=== PATIENT | female | born 1965 | race Caucasian/White ===

== ENCOUNTER 2021-06-18 17:26 | Emergency (ER) | payer OTHER | END 2021-06-18 20:15 | disposition home or self-care (01) | LOC: MW.ED 17:26 | DX: S00.12XA Contusion of left eyelid and periocular area, initial encounter (principal); Z88.8 Allergy status to other drugs, medicaments and biological substances; V89.2XXA Person injured in unspecified motor-vehicle accident, traffic, initial encounter | CPT/HCPCS: 70486; 70486-26; 99283; 99283-25 ==

== ENCOUNTER 2021-11-18 13:46 | Emergency (ER) | payer SELFPAY | END 2021-11-18 14:12 | disposition left against medical advice (07) | LOC: MW.ED 13:46 | DX: Z53.21 Procedure and treatment not carried out due to patient leaving prior to being seen by health care provider (principal) ==

== ENCOUNTER 2022-07-20 15:23 | Emergency (ER) | payer OTHER ==
[2022-07-20] MEDS ORDERED: Ketorolac 60 MG/2 ML SDV IM ONE (16:06)
== END 2022-07-20 16:35 | disposition home or self-care (01) ==
LOC: MW.ED 15:23
DX: M25.511 Pain in right shoulder (principal); G89.29 Other chronic pain; Z79.899 Other long term (current) drug therapy; Z88.5 Allergy status to narcotic agent; Z88.8 Allergy status to other drugs, medicaments and biological substances
CPT/HCPCS: 73030; 96372; 99283; J1885

== ENCOUNTER 2022-09-13 06:32 | Emergency (ER) | payer SELFPAY ==
[2022-09-13] MEDS ORDERED: methylPREDNISolone Sodium Succinate 125 MG/2 ML SDV IVPUSH ONE (06:46)
[2022-09-13] MEDS ORDERED: Albuterol/Ipratropium 3.0-0.5 MG/3 ML Neb Soln NEB ONE (06:46)
[2022-09-13 06:51] LABS: BASOPHILS ABSOLUTE AUTO 0.1 K/uL (0.0-0.1); EOSINOPHILS ABSOLUTE AUTO 0.3 K/uL (0.0-0.7); EOSINOPHILS PERCENT AUTO 4.8 % (0.0-7.0); HEMATOCRIT 43.4 % (36.0-46.0); HEMOGLOBIN 15.2 g/dL (12.0-16.0); LYMPHOCYTES ABSOLUTE AUTO 2.1 K/uL (0.6-2.4); LYMPHOCYTES PERCENT AUTO 40.8 % (16.0-40.0); MEAN CORPUSCULAR HEMOGLOBIN 32.4 pg (27.0-32.0); MEAN CORPUSCULAR VOLUME 92.5 fL (80.0-98.0); MONOCYTES ABSOLUTE AUTO 0.6 K/uL (0.0-0.8); MONOCYTES PERCENT AUTO 11.5 % (0.0-15.0); NEUTROPHILS ABSOLUTE AUTO 2.2 K/uL (1.4-5.7); NEUTROPHILS PERCENT AUTO 41.9 % (48.0-80.0); NRBC ABSOLUTE 0 K/uL; PLATELET COUNT,PLT 213 K/uL (150-400); RED BLOOD CELL COUNT 4.69 M/uL (4.30-5.90); WHITE BLOOD CELL COUNT,WBC 5.24 K/uL (4.0-11.0)
[2022-09-13 07:15] LABS: ALBUMIN 3.6 g/dL (3.4-5.0); BILIRUBIN TOTAL 0.3 mg/dL (0.2-1.0); CALCIUM 8.2 mg/dL (8.5-10.1); CARBON DIOXIDE,CO2 21.3 mmol/L (21.0-32.0); CREATININE 0.8 mg/dL (0.6-1.0); EST CRCL DRUG DOSING (CG) 57.07 mL/min; PROTEIN TOTAL,TP 7.3 g/dL (6.4-8.2)
[2022-09-13] MEDS ORDERED: Albuterol 8 GM Inhaler INH ONE (08:37)
== END 2022-09-13 08:51 | disposition home or self-care (01) ==
LOC: MW.ED 06:32
DX: J45.909 Unspecified asthma, uncomplicated (principal); Z88.6 Allergy status to analgesic agent; Z88.8 Allergy status to other drugs, medicaments and biological substances; Z88.5 Allergy status to narcotic agent; Z20.822 Contact with and (suspected) exposure to COVID-19
CPT/HCPCS: 36415; 71045; 80053; 84484; 85025; 87635; 93005; 96374; 99285; A9270; J2930; J7620-GY; U0002

== ENCOUNTER 2022-09-14 12:47 | Observation (INO) | payer SELFPAY ==
[2022-09-14] MEDS ORDERED: Ketorolac 30 MG/ML SDV IVPUSH ONE (15:21)
[2022-09-14] MEDS ORDERED: Lactated Ringers 1,000 ML IV ONE (15:21)
[2022-09-14] MEDS ORDERED: Albuterol/Ipratropium 3.0-0.5 MG/3 ML Neb Soln NEB ONE (15:21)
[2022-09-14 16:12] LABS: BASOPHILS PERCENT AUTO 0.4 % (0.0-1.5); EOSINOPHILS ABSOLUTE AUTO 0.1 K/uL (0.0-0.7); EOSINOPHILS PERCENT AUTO 1.1 % (0.0-7.0); HEMATOCRIT 42.9 % (36.0-46.0); LYMPHOCYTES ABSOLUTE AUTO 4.1 K/uL (0.6-2.4); LYMPHOCYTES PERCENT AUTO 38.2 % (16.0-40.0); MEAN CORPUSCULAR HEMOGLOBIN 32.2 pg (27.0-32.0); MEAN CORPUSCULAR VOLUME 92.1 fL (80.0-98.0); MONOCYTES ABSOLUTE AUTO 0.7 K/uL (0.0-0.8); MONOCYTES PERCENT AUTO 6.5 % (0.0-15.0); NEUTROPHILS ABSOLUTE AUTO 5.8 K/uL (1.4-5.7); NEUTROPHILS PERCENT AUTO 53.8 % (48.0-80.0); NRBC ABSOLUTE 0 K/uL; PLATELET COUNT,PLT 228 K/uL (150-400); RED BLOOD CELL COUNT 4.66 M/uL (4.30-5.90); WHITE BLOOD CELL COUNT,WBC 10.81 K/uL (4.0-11.0)
[2022-09-14 16:34] LABS: A/G RATIO 0.9 (0.9-1.6); ALBUMIN 3.7 g/dL (3.4-5.0); BILIRUBIN TOTAL 0.3 mg/dL (0.2-1.0); CALCIUM 8.3 mg/dL (8.5-10.1); CARBON DIOXIDE,CO2 21.4 mmol/L (21.0-32.0); CREATININE 0.7 mg/dL (0.6-1.0); EST CRCL DRUG DOSING (CG) 65.23 mL/min; POTASSIUM,K 3.6 mmol/L (3.5-5.1); PROTEIN TOTAL,TP 7.7 g/dL (6.4-8.2)
[2022-09-14] MEDS ORDERED: cefTRIAXone 1 GM in Sodium Chloride 0.9% 50 ML IV ONE (16:44)
[2022-09-14] MEDS ORDERED: Albuterol 0.083% 2.5 MG/3 ML Neb Soln NEB ONE (16:45)
[2022-09-14] MEDS ORDERED: Azithromycin 250 MG Tab PO STA (16:45)
[2022-09-14] MEDS ORDERED: Nicotine 14 MG/24 Hr Patch TRDERM ONE (16:45)
[2022-09-14] MEDS ORDERED: LORazepam 0.5 MG Tab PO ONE (17:04)
[2022-09-14] MEDS ORDERED: Furosemide 40 MG/4 ML VIAL IVPUSH ONE (18:10)
[2022-09-14] MEDS ORDERED: Albuterol/Ipratropium 3.0-0.5 MG/3 ML Neb Soln NEB PRN (19:13)
[2022-09-14] MEDS ORDERED: Polyethylene Glycol 3350 Powder 17 GM Packet PO PRN (19:13)
[2022-09-14] MEDS ORDERED: Ondansetron 4 MG Tab.DIS PO PRN (19:13)
[2022-09-14] MEDS ORDERED: Ibuprofen 400 MG Tab PO PRN (21:35)
[2022-09-15] MEDS ORDERED: Furosemide 40 MG/4 ML VIAL IVPUSH SCH (02:00)
[2022-09-15 06:01] LABS: BASOPHILS ABSOLUTE AUTO 0.1 K/uL (0.0-0.1); BASOPHILS PERCENT AUTO 0.6 % (0.0-1.5); EOSINOPHILS ABSOLUTE AUTO 0.2 K/uL (0.0-0.7); EOSINOPHILS PERCENT AUTO 1.4 % (0.0-7.0); HEMATOCRIT 41.6 % (36.0-46.0); HEMOGLOBIN 14.1 g/dL (12.0-16.0); LYMPHOCYTES ABSOLUTE AUTO 3.7 K/uL (0.6-2.4); LYMPHOCYTES PERCENT AUTO 35.2 % (16.0-40.0); MEAN CORPUSCULAR HEMOGLOBIN 31.3 pg (27.0-32.0); MEAN CORPUSCULAR HGB CONC 33.9 g/dL (31.0-37.0); MEAN CORPUSCULAR VOLUME 92.2 fL (80.0-98.0); MONOCYTES ABSOLUTE AUTO 0.7 K/uL (0.0-0.8); MONOCYTES PERCENT AUTO 6.6 % (0.0-15.0); NEUTROPHILS ABSOLUTE AUTO 5.8 K/uL (1.4-5.7); NEUTROPHILS PERCENT AUTO 56.2 % (48.0-80.0); NRBC ABSOLUTE 0 K/uL; PLATELET COUNT,PLT 234 K/uL (150-400); RED BLOOD CELL COUNT 4.51 M/uL (4.30-5.90)
[2022-09-15 06:26] LABS: CALCIUM 8.1 mg/dL (8.5-10.1); CARBON DIOXIDE,CO2 24.1 mmol/L (21.0-32.0); CREATININE 0.7 mg/dL (0.6-1.0); EST CRCL DRUG DOSING (CG) 65.23 mL/min; MAGNESIUM 1.5 mg/dL (1.8-2.4); POTASSIUM,K 3.3 mmol/L (3.5-5.1)
[2022-09-15] MEDS ORDERED: Potassium Chloride 20 MEQ Tab.ER PO ONE ×2 (07:05→12:00)
[2022-09-15] MEDS ORDERED: Magnesium Sulfate/Water 2 GM in Premix Bag 1 BAG IV ONE (07:05)
[2022-09-15] MEDS ORDERED: Magnesium Sulfate/Water 4 GM in Premix Bag 1 BAG IV ONE (07:58)
[2022-09-15] MEDS ORDERED: predniSONE 20 MG Tab PO SCH (08:00)
[2022-09-15] MEDS ORDERED: Enoxaparin 40 MG/0.4 ML Syringe SUBCUT SCH (09:00)
[2022-09-15] MEDS ORDERED: Azithromycin 250 MG Tab PO SCH (09:00)
[2022-09-15] MEDS ORDERED: Levofloxacin 750 MG Tab PO ONE (10:30)
[2022-09-15] MEDS ORDERED: Fluticasone/Salmeterol 250-50 MCG Inhalation Powder 14/Diskus INH SCH (10:30)
[2022-09-15] MEDS ORDERED: cefTRIAXone 1 GM in Sodium Chloride 0.9% 50 ML IV SCH (17:00)
== END 2022-09-15 12:15 | disposition home or self-care (01) ==
LOC: MW.ED 12:47 → MW.MS 18:11
PROVIDERS: ADMIT Internal Medicine; ATTEND Internal Medicine
DX: J18.9 Pneumonia, unspecified organism (principal); J44.1 Chronic obstructive pulmonary disease with (acute) exacerbation; J44.0 Chronic obstructive pulmonary disease with (acute) lower respiratory infection; J81.1 Chronic pulmonary edema; M19.90 Unspecified osteoarthritis, unspecified site; F41.9 Anxiety disorder, unspecified; F32.A Depression, unspecified; F43.10 Post-traumatic stress disorder, unspecified; F17.210 Nicotine dependence, cigarettes, uncomplicated; Z88.8 Allergy status to other drugs, medicaments and biological substances; Z88.5 Allergy status to narcotic agent; Z79.899 Other long term (current) drug therapy; Z79.52 Long term (current) use of systemic steroids
CPT/HCPCS: 36415; 71045; 80048; 80053; 83735; 83880; 85025; 93005; 93306; 96365; 96375; 99285; A9270; J0696; J1885; J1940; J3475; J3490; J7120; 99222; 99238; J7620-GY

== ENCOUNTER 2023-02-10 13:44 | Emergency (ER) | payer SELFPAY ==
[2023-02-10] MEDS ORDERED: Lidocaine 1% PF 2 ML SDV INJECT ONE (14:05)
== END 2023-02-10 14:34 | disposition home or self-care (01) ==
LOC: MW.ED 13:44
DX: S61.411A Laceration without foreign body of right hand, initial encounter (principal); J44.9 Chronic obstructive pulmonary disease, unspecified; Z88.5 Allergy status to narcotic agent; Z88.8 Allergy status to other drugs, medicaments and biological substances; Z79.899 Other long term (current) drug therapy; W26.0XXA Contact with knife, initial encounter
CPT/HCPCS: 12001; 99282; 99283; J3490

== ENCOUNTER 2023-02-23 14:30 | Emergency (ER) | payer SELFPAY | END 2023-02-23 15:20 | disposition left against medical advice (07) | LOC: MW.ED 14:30 | DX: Z48.02 Encounter for removal of sutures (principal) | CPT/HCPCS: 99281 ==

== ENCOUNTER 2023-05-05 11:29 | Emergency (ER) | payer BC | END 2023-05-05 13:25 | disposition home or self-care (01) | LOC: MW.ED 11:29 | DX: S06.0X0A Concussion without loss of consciousness, initial encounter (principal); S39.012A Strain of muscle, fascia and tendon of lower back, initial encounter; J44.9 Chronic obstructive pulmonary disease, unspecified; Z79.899 Other long term (current) drug therapy; Z88.8 Allergy status to other drugs, medicaments and biological substances; Z88.5 Allergy status to narcotic agent; Z88.6 Allergy status to analgesic agent; W01.0XXA Fall on same level from slipping, tripping and stumbling without subsequent striking against object, initial encounter | CPT/HCPCS: 70450; 70450-26; 72131; 72131-26; 99283; 99284 ==

== ENCOUNTER 2023-07-31 11:57 | Emergency (ER) | payer SELFPAY ==
[2023-07-31] MEDS: Cyclobenzaprine 10 MG Tab PO ONE (12:32)
[2023-07-31] MEDS: Ibuprofen 400 MG Tab PO ONE (12:33)
== END 2023-07-31 14:03 | disposition home or self-care (01) ==
LOC: MW.ED 11:57
DX: M54.40 Lumbago with sciatica, unspecified side (principal); I10 Essential (primary) hypertension; J44.9 Chronic obstructive pulmonary disease, unspecified; Z88.6 Allergy status to analgesic agent; Z88.5 Allergy status to narcotic agent; Z88.8 Allergy status to other drugs, medicaments and biological substances; Z90.49 Acquired absence of other specified parts of digestive tract; Z90.710 Acquired absence of both cervix and uterus; Z75.8 Other problems related to medical facilities and other health care
CPT/HCPCS: 72100; 72170; 82947; 99283; A9270

== ENCOUNTER 2023-08-26 08:11 | Emergency (ER) | payer SELFPAY ==
[2023-08-26 09:02] LABS: BASOPHILS ABSOLUTE AUTO 0.06 K/uL (0.00-0.20); BASOPHILS PERCENT AUTO 1.2 % (0.0-1.0); EOSINOPHILS ABSOLUTE AUTO 0.17 K/uL (0.00-0.45); EOSINOPHILS PERCENT AUTO 3.5 % (0.0-6.0); HEMATOCRIT 43.7 % (37.0-47.0); HEMOGLOBIN 14.9 g/dL (12.0-16.0); IMMATURE GRAN ABSOLUTE AUTO 0.02 K/uL (0.00-0.05); IMMATURE GRAN PERCENT AUTO 0.4 % (0.0-0.4); LYMPHOCYTES ABSOLUTE AUTO 2.17 K/uL (1.00-4.80); LYMPHOCYTES PERCENT AUTO 44.6 % (24.0-44.0); MEAN CORPUSCULAR HEMOGLOBIN 30.8 pg (28.0-32.0); MEAN CORPUSCULAR HGB CONC 34.1 g/dL (32.0-36.0); MEAN CORPUSCULAR VOLUME 90.3 fL (83.0-99.0); MEAN PLATELET VOLUME 9.8 fL (9.4-12.3); MONOCYTES ABSOLUTE AUTO 0.38 K/uL (0.00-0.80); MONOCYTES PERCENT AUTO 7.8 % (0.0-8.0); NEUTROPHILS ABSOLUTE AUTO 2.07 K/uL (1.80-7.70); NEUTROPHILS PERCENT AUTO 42.5 % (41.0-71.0); PLATELET COUNT,PLT 239 K/uL (150-400); RED BLOOD CELL COUNT 4.84 M/uL (4.10-5.30); WHITE BLOOD CELL COUNT,WBC 4.87 K/uL (3.9-11.3)
[2023-08-26 09:16] LABS: A/G RATIO 0.9 (0.9-1.6); ALBUMIN 3.3 g/dL (3.4-5.0); BILIRUBIN TOTAL 0.2 mg/dL (0.2-1.0); CALCIUM 8.3 mg/dL (8.5-10.1); CARBON DIOXIDE,CO2 24.5 mmol/L (21.0-32.0); CREATININE 0.8 mg/dL (0.6-1.0); EST CRCL DRUG DOSING (CG) 56.4 mL/min; POTASSIUM,K 4.1 mmol/L (3.5-5.1); PROTEIN TOTAL,TP 7.2 g/dL (6.4-8.2)
== END 2023-08-26 12:42 | disposition home or self-care (01) ==
LOC: MW.ED 08:11
DX: R07.89 Other chest pain (principal); F17.210 Nicotine dependence, cigarettes, uncomplicated; I10 Essential (primary) hypertension; J44.9 Chronic obstructive pulmonary disease, unspecified; Z79.899 Other long term (current) drug therapy; Z75.8 Other problems related to medical facilities and other health care; Z88.5 Allergy status to narcotic agent; Z88.8 Allergy status to other drugs, medicaments and biological substances
CPT/HCPCS: 36415; 71045; 71045-26; 80053; 84484; 85025; 93005; 93010; 99282; 99285

== ENCOUNTER 2023-11-24 14:37 | Emergency (ER) | payer SELFPAY ==
[2023-11-24 14:56] LABS: BASOPHILS ABSOLUTE AUTO 0.07 K/uL (0.00-0.20); BASOPHILS PERCENT AUTO 0.9 % (0.0-1.0); EOSINOPHILS ABSOLUTE AUTO 0.15 K/uL (0.00-0.45); EOSINOPHILS PERCENT AUTO 1.8 % (0.0-6.0); HEMATOCRIT 43.5 % (37.0-47.0); HEMOGLOBIN 15.5 g/dL (12.0-16.0); IMMATURE GRAN ABSOLUTE AUTO 0.03 K/uL (0.00-0.05); IMMATURE GRAN PERCENT AUTO 0.4 % (0.0-0.4); LYMPHOCYTES ABSOLUTE AUTO 3.57 K/uL (1.00-4.80); LYMPHOCYTES PERCENT AUTO 43.6 % (24.0-44.0); MEAN CORPUSCULAR HEMOGLOBIN 31.3 pg (28.0-32.0); MEAN CORPUSCULAR HGB CONC 35.6 g/dL (32.0-36.0); MEAN CORPUSCULAR VOLUME 87.9 fL (83.0-99.0); MEAN PLATELET VOLUME 9.7 fL (9.4-12.3); MONOCYTES ABSOLUTE AUTO 0.63 K/uL (0.00-0.80); MONOCYTES PERCENT AUTO 7.7 % (0.0-8.0); NEUTROPHILS ABSOLUTE AUTO 3.74 K/uL (1.80-7.70); NEUTROPHILS PERCENT AUTO 45.6 % (41.0-71.0); PLATELET COUNT,PLT 252 K/uL (150-400); RED BLOOD CELL COUNT 4.95 M/uL (4.10-5.30); WHITE BLOOD CELL COUNT,WBC 8.19 K/uL (3.9-11.3)
[2023-11-24 15:13] LABS: INR 1.05 (0.86-1.11); PTT,PARTIAL THROMBOPLSTIN TIME 29.1 SEC (23.9-30.7)
[2023-11-24] MEDS: Aspirin 81 MG Tab.Chew PO STA (15:24)
[2023-11-24] MEDS: LORazepam 1 MG Tab PO STA (15:25)
[2023-11-24] MEDS: Albuterol 0.083% 2.5 MG/3 ML Neb Soln NEB STA (15:26)
[2023-11-24] MEDS: Albuterol/Ipratropium 3.0-0.5 MG/3 ML Neb Soln NEB STA (15:26)
[2023-11-24 15:31] LABS: A/G RATIO 1.3 (0.9-1.6); ALBUMIN 4.3 g/dL (3.4-5.0); BILIRUBIN TOTAL 0.5 mg/dL (0.2-1.0); CALCIUM 9.3 mg/dL (8.5-10.1); CARBON DIOXIDE,CO2 24.2 mmol/L (21.0-32.0); CREATININE 0.7 mg/dL (0.6-1.0); EST CRCL DRUG DOSING (CG) 64.46 mL/min; POTASSIUM,K 4.2 mmol/L (3.5-5.1); PROTEIN TOTAL,TP 7.7 g/dL (6.4-8.2)
== END 2023-11-24 16:50 | disposition left against medical advice (07) ==
LOC: MW.ED 14:37
DX: R07.2 Precordial pain (principal); I10 Essential (primary) hypertension; E78.00 Pure hypercholesterolemia, unspecified; J45.909 Unspecified asthma, uncomplicated; Z90.49 Acquired absence of other specified parts of digestive tract; F17.210 Nicotine dependence, cigarettes, uncomplicated; Z75.8 Other problems related to medical facilities and other health care; Z88.8 Allergy status to other drugs, medicaments and biological substances
CPT/HCPCS: 36415; 71045; 80053; 83690; 84484; 85025; 85610; 85730; 93005; 99285; A9270; 93010; 99283; J7620-GY

== ENCOUNTER 2023-12-20 17:04 | Emergency (ER) | payer SELFPAY ==
[2023-12-20 17:25] LABS: BASOPHILS ABSOLUTE AUTO 0.08 K/uL (0.00-0.20); BASOPHILS PERCENT AUTO 0.8 % (0.0-1.0); EOSINOPHILS ABSOLUTE AUTO 0.25 K/uL (0.00-0.45); EOSINOPHILS PERCENT AUTO 2.6 % (0.0-6.0); HEMATOCRIT 40.4 % (37.0-47.0); HEMOGLOBIN 14.1 g/dL (12.0-16.0); IMMATURE GRAN ABSOLUTE AUTO 0.05 K/uL (0.00-0.05); IMMATURE GRAN PERCENT AUTO 0.5 % (0.0-0.4); LYMPHOCYTES PERCENT AUTO 37.9 % (24.0-44.0); MEAN CORPUSCULAR HEMOGLOBIN 31.1 pg (28.0-32.0); MEAN CORPUSCULAR HGB CONC 34.9 g/dL (32.0-36.0); MEAN CORPUSCULAR VOLUME 89.2 fL (83.0-99.0); MEAN PLATELET VOLUME 9.9 fL (9.4-12.3); MONOCYTES ABSOLUTE AUTO 0.68 K/uL (0.00-0.80); MONOCYTES PERCENT AUTO 7.2 % (0.0-8.0); NEUTROPHILS ABSOLUTE AUTO 4.83 K/uL (1.80-7.70); PLATELET COUNT,PLT 258 K/uL (150-400); RED BLOOD CELL COUNT 4.53 M/uL (4.10-5.30); WHITE BLOOD CELL COUNT,WBC 9.49 K/uL (3.9-11.3)
[2023-12-20 17:50] LABS: ALBUMIN 3.7 g/dL (3.4-5.0); BILIRUBIN TOTAL 0.3 mg/dL (0.2-1.0); CALCIUM 8.7 mg/dL (8.5-10.1); CARBON DIOXIDE,CO2 27.3 mmol/L (21.0-32.0); CREATININE 0.8 mg/dL (0.6-1.0); EST CRCL DRUG DOSING (CG) 76.36 mL/min; POTASSIUM,K 3.5 mmol/L (3.5-5.1); PROTEIN TOTAL,TP 7.5 g/dL (6.4-8.2)
== END 2023-12-20 18:27 | disposition home or self-care (01) ==
LOC: MW.ED 17:04
DX: R07.2 Precordial pain (principal); I10 Essential (primary) hypertension; Z91.148 Patient's other noncompliance with medication regimen for other reason; E78.00 Pure hypercholesterolemia, unspecified; Z75.8 Other problems related to medical facilities and other health care; Z88.8 Allergy status to other drugs, medicaments and biological substances; Z79.899 Other long term (current) drug therapy; Z90.49 Acquired absence of other specified parts of digestive tract; Z90.710 Acquired absence of both cervix and uterus
CPT/HCPCS: 36415; 80053; 84484; 85025; 93005; 93010; 99283; 99285

== ENCOUNTER 2024-05-01 09:37 | Emergency (ER) | payer MEDICAID ==
[2024-05-01] MEDS ORDERED: Sodium Chloride 0.9% 10 ML Syringe FLUSH PRN (09:46)
[2024-05-01 10:01] LABS: BASOPHILS ABSOLUTE AUTO 0.07 K/uL (0.00-0.20); BASOPHILS PERCENT AUTO 0.9 % (0.0-1.0); EOSINOPHILS ABSOLUTE AUTO 0.27 K/uL (0.00-0.45); EOSINOPHILS PERCENT AUTO 3.6 % (0.0-6.0); HEMATOCRIT 40.8 % (37.0-47.0); HEMOGLOBIN 14.6 g/dL (12.0-16.0); IMMATURE GRAN ABSOLUTE AUTO 0.03 K/uL (0.00-0.05); IMMATURE GRAN PERCENT AUTO 0.4 % (0.0-0.4); LYMPHOCYTES ABSOLUTE AUTO 3.08 K/uL (1.00-4.80); LYMPHOCYTES PERCENT AUTO 41.4 % (24.0-44.0); MEAN CORPUSCULAR HEMOGLOBIN 32.2 pg (28.0-32.0); MEAN CORPUSCULAR HGB CONC 35.8 g/dL (32.0-36.0); MEAN CORPUSCULAR VOLUME 89.9 fL (83.0-99.0); MONOCYTES ABSOLUTE AUTO 0.69 K/uL (0.00-0.80); MONOCYTES PERCENT AUTO 9.3 % (0.0-8.0); NEUTROPHILS PERCENT AUTO 44.4 % (41.0-71.0); PLATELET COUNT,PLT 226 K/uL (150-400); RED BLOOD CELL COUNT 4.54 M/uL (4.10-5.30); WHITE BLOOD CELL COUNT,WBC 7.44 K/uL (3.9-11.3)
[2024-05-01] MEDS: methylPREDNISolone Sodium Succinate 125 MG/2 ML SDV IVPUSH ONE (10:16)
[2024-05-01 10:20] LABS: INR 1.02 (0.86-1.11)
[2024-05-01] MEDS: Albuterol/Ipratropium 3.0-0.5 MG/3 ML Neb Soln NEB ONE (10:26)
[2024-05-01 10:36] LABS: A/G RATIO 1.1 (0.9-1.6); ALANINE AMINOTRANSFERASE,ALT 45 IU/L (14-63); ALBUMIN 3.9 g/dL (3.4-5.0); ALKALINE PHOSPHATASE 75 U/L (46-116); ASPARTATE AMNIOTRANSFERASE,AST 22 IU/L (15-37); BILIRUBIN TOTAL 0.4 mg/dL (0.2-1.0); BLOOD UREA NITROGEN,BUN 14 mg/dL (7.0-18.0); CALCIUM 8.8 mg/dL (8.5-10.1); CARBON DIOXIDE,CO2 24.1 mmol/L (21.0-32.0); CHLORIDE,CL 105 mmol/L (98-107); CREATININE 0.8 mg/dL (0.6-1.0); EST CRCL DRUG DOSING (CG) 55.73 mL/min; ETHANOL BLOOD MEDICAL <3 mg/dL; GLUCOSE RANDOM 123 mg/dL (74-106); LIPASE 26 U/L (16-77); MAGNESIUM 2.1 mg/dL (1.8-2.4); POTASSIUM,K 4.1 mmol/L (3.5-5.1); PRO B-TYPE NATRIUR PEPT,BNPPRO 103 pg/mL (0-125); PROTEIN TOTAL,TP 7.4 g/dL (6.4-8.2); SODIUM,NA 142 mmol/L (136-145)
[2024-05-01 10:44] LABS: ESTIMATED GFR 86 mL/min (>60)
[2024-05-01] MEDS: Ondansetron 4 MG/2 ML SDV IVPUSH ONE (11:11)
== END 2024-05-01 11:48 | disposition home or self-care (01) ==
LOC: MW.ED 09:37
DX: J44.1 Chronic obstructive pulmonary disease with (acute) exacerbation (principal); I10 Essential (primary) hypertension; E78.00 Pure hypercholesterolemia, unspecified; Z90.49 Acquired absence of other specified parts of digestive tract; F17.210 Nicotine dependence, cigarettes, uncomplicated; Z90.710 Acquired absence of both cervix and uterus; Z96.649 Presence of unspecified artificial hip joint; Z88.5 Allergy status to narcotic agent; Z88.6 Allergy status to analgesic agent; Z88.8 Allergy status to other drugs, medicaments and biological substances; Z79.84 Long term (current) use of oral hypoglycemic drugs; Z79.52 Long term (current) use of systemic steroids; Z79.899 Other long term (current) drug therapy
CPT/HCPCS: 36415; 71045; 80053; 80307; 83690; 83735; 83880; 84484; 85025; 85379; 85610; 87428; 93005; 94640; 96374; 96375; 99285; J2405; J2919; J7620-GY

== ENCOUNTER 2024-07-10 11:19 | Emergency (ER) | payer MEDICAID ==
[2024-07-10] MEDS: Ondansetron 4 MG Tab.DIS PO ONE (12:25)
[2024-07-10] MEDS: Ibuprofen 600 MG Tab PO ONE (12:25)
[2024-07-10 12:38] LABS: BASOPHILS ABSOLUTE AUTO 0.06 K/uL (0.00-0.20); BASOPHILS PERCENT AUTO 0.8 % (0.0-1.0); EOSINOPHILS ABSOLUTE AUTO 0.16 K/uL (0.00-0.45); EOSINOPHILS PERCENT AUTO 2.2 % (0.0-6.0); HEMATOCRIT 42.3 % (37.0-47.0); HEMOGLOBIN 14.5 g/dL (12.0-16.0); IMMATURE GRAN ABSOLUTE AUTO 0.02 K/uL (0.00-0.05); IMMATURE GRAN PERCENT AUTO 0.3 % (0.0-0.4); LYMPHOCYTES PERCENT AUTO 41.7 % (24.0-44.0); MEAN CORPUSCULAR HEMOGLOBIN 31.4 pg (28.0-32.0); MEAN CORPUSCULAR HGB CONC 34.3 g/dL (32.0-36.0); MEAN CORPUSCULAR VOLUME 91.6 fL (83.0-99.0); MEAN PLATELET VOLUME 9.8 fL (9.4-12.3); MONOCYTES ABSOLUTE AUTO 0.44 K/uL (0.00-0.80); MONOCYTES PERCENT AUTO 5.9 % (0.0-8.0); NEUTROPHILS ABSOLUTE AUTO 3.66 K/uL (1.80-7.70); NEUTROPHILS PERCENT AUTO 49.1 % (41.0-71.0); PLATELET COUNT,PLT 230 K/uL (150-400); RED BLOOD CELL COUNT 4.62 M/uL (4.10-5.30); WHITE BLOOD CELL COUNT,WBC 7.44 K/uL (3.9-11.3)
[2024-07-10 13:02] LABS: A/G RATIO 1.2 (0.9-1.6); ALBUMIN 3.8 g/dL (3.4-5.0); BILIRUBIN TOTAL 0.3 mg/dL (0.2-1.0); CALCIUM 8.6 mg/dL (8.5-10.1); CARBON DIOXIDE,CO2 24.2 mmol/L (21.0-32.0); CREATININE 0.7 mg/dL (0.6-1.0); EST CRCL DRUG DOSING (CG) 63.69 mL/min; POTASSIUM,K 4.3 mmol/L (3.5-5.1); PROTEIN TOTAL,TP 7.1 g/dL (6.4-8.2)
== END 2024-07-10 13:47 | disposition home or self-care (01) ==
LOC: MW.ED 11:19
DX: J41.0 Simple chronic bronchitis (principal); J06.9 Acute upper respiratory infection, unspecified; I10 Essential (primary) hypertension; E78.00 Pure hypercholesterolemia, unspecified; F17.200 Nicotine dependence, unspecified, uncomplicated; Z88.6 Allergy status to analgesic agent; Z88.8 Allergy status to other drugs, medicaments and biological substances; Z79.899 Other long term (current) drug therapy; Z79.84 Long term (current) use of oral hypoglycemic drugs; Z90.49 Acquired absence of other specified parts of digestive tract; Z90.710 Acquired absence of both cervix and uterus; Z75.8 Other problems related to medical facilities and other health care
CPT/HCPCS: 36415; 71046; 80053; 83880; 85025; 87428; 99285; A9270; 99283

== ENCOUNTER 2024-07-13 04:51 | Emergency (ER) | payer OTHER, MEDICAID ==
[2024-07-13] MEDS: Albuterol/Ipratropium 3.0-0.5 MG/3 ML Neb Soln NEB ONE (05:06)
[2024-07-13] MEDS: methylPREDNISolone Sodium Succinate 125 MG/2 ML SDV IVPUSH ONE (05:06)
[2024-07-13 05:07] LABS: BASOPHILS ABSOLUTE AUTO 0.04 K/uL (0.00-0.20); BASOPHILS PERCENT AUTO 0.2 % (0.0-1.0); EOSINOPHILS ABSOLUTE AUTO 0.03 K/uL (0.00-0.45); EOSINOPHILS PERCENT AUTO 0.2 % (0.0-6.0); HEMATOCRIT 44.5 % (37.0-47.0); HEMOGLOBIN 15.4 g/dL (12.0-16.0); IMMATURE GRAN ABSOLUTE AUTO 0.06 K/uL (0.00-0.05); IMMATURE GRAN PERCENT AUTO 0.4 % (0.0-0.4); LYMPHOCYTES ABSOLUTE AUTO 2.66 K/uL (1.00-4.80); LYMPHOCYTES PERCENT AUTO 16.2 % (24.0-44.0); MEAN CORPUSCULAR HEMOGLOBIN 31.9 pg (28.0-32.0); MEAN CORPUSCULAR HGB CONC 34.6 g/dL (32.0-36.0); MEAN CORPUSCULAR VOLUME 92.1 fL (83.0-99.0); MEAN PLATELET VOLUME 9.6 fL (9.4-12.3); MONOCYTES PERCENT AUTO 7.3 % (0.0-8.0); NEUTROPHILS ABSOLUTE AUTO 12.43 K/uL (1.80-7.70); NEUTROPHILS PERCENT AUTO 75.7 % (41.0-71.0); PLATELET COUNT,PLT 270 K/uL (150-400); RED BLOOD CELL COUNT 4.83 M/uL (4.10-5.30); WHITE BLOOD CELL COUNT,WBC 16.42 K/uL (3.9-11.3)
[2024-07-13 05:40] LABS: A/G RATIO 1.2 (0.9-1.6); ALANINE AMINOTRANSFERASE,ALT 39 IU/L (14-63); ALBUMIN 4.2 g/dL (3.4-5.0); ALKALINE PHOSPHATASE 93 U/L (46-116); ASPARTATE AMNIOTRANSFERASE,AST 19 IU/L (15-37); BILIRUBIN TOTAL 0.3 mg/dL (0.2-1.0); BLOOD UREA NITROGEN,BUN 12 mg/dL (7.0-18.0); CARBON DIOXIDE,CO2 22.7 mmol/L (21.0-32.0); CHLORIDE,CL 105 mmol/L (98-107); CREATININE 0.9 mg/dL (0.6-1.0); ESTIMATED GFR 75 mL/min (>60); GLUCOSE RANDOM 159 mg/dL (74-106); MAGNESIUM 2.2 mg/dL (1.8-2.4); PRO B-TYPE NATRIUR PEPT,BNPPRO 89 pg/mL (0-125); PROTEIN TOTAL,TP 7.8 g/dL (6.4-8.2); SODIUM,NA 142 mmol/L (136-145)
[2024-07-13 05:41] LABS: INR 1.04 (0.86-1.11)
[2024-07-13 05:55] LABS: D-DIMER QUANTITATIVE 0.53 mg/L FEU (0.00-0.50)
[2024-07-13] MEDS: Sodium Chloride 0.9% 1,000 ML IV ONE (06:13)
[2024-07-13] MEDS: Iopamidol 755 MG/ML 500 ML Multipack Bottle IVPUSH ONE (06:42)
[2024-07-13 06:46] LABS: CORONAVIRUS COVID-19 NAA NEGATIVE (NEGATIVE); INFLUENZA A NAA NEGATIVE (NEGATIVE); INFLUENZA B NAA NEGATIVE (NEGATIVE); RESPIRATORY SYNCYTIAL VIR NAA NEGATIVE (NEGATIVE)
[2024-07-13] MEDS: Nicotine 21 MG/24 Hr Patch TRDERM ONE (07:42)
== END 2024-07-13 07:58 | disposition home or self-care (01) ==
LOC: MW.ED 04:51
DX: J44.1 Chronic obstructive pulmonary disease with (acute) exacerbation (principal); E78.00 Pure hypercholesterolemia, unspecified; I10 Essential (primary) hypertension; F17.210 Nicotine dependence, cigarettes, uncomplicated; Z88.6 Allergy status to analgesic agent; Z88.8 Allergy status to other drugs, medicaments and biological substances; Z88.5 Allergy status to narcotic agent; Z79.84 Long term (current) use of oral hypoglycemic drugs; Z79.899 Other long term (current) drug therapy; Z79.51 Long term (current) use of inhaled steroids
CPT/HCPCS: 0241U; 36415; 71045; 71275; 80053; 83605; 83735; 83880; 84484; 85025; 85379; 85610; 87040; 93005; 96361; 96374; 99285; A9270; J2919; J7030; J7620; Q9967; 93010; 99284

== ENCOUNTER 2024-11-08 22:23 | Emergency (ER) | payer SELFPAY | END 2024-11-08 23:20 | LOC: MW.ED 22:23 | DX: Z02.89 Encounter for other administrative examinations (principal); M54.50 Low back pain, unspecified; G89.29 Other chronic pain; Z87.828 Personal history of other (healed) physical injury and trauma; F17.210 Nicotine dependence, cigarettes, uncomplicated; I10 Essential (primary) hypertension; J44.9 Chronic obstructive pulmonary disease, unspecified; E78.00 Pure hypercholesterolemia, unspecified; Z79.899 Other long term (current) drug therapy; Z79.84 Long term (current) use of oral hypoglycemic drugs; Z88.8 Allergy status to other drugs, medicaments and biological substances; Z88.5 Allergy status to narcotic agent; Z88.6 Allergy status to analgesic agent | CPT/HCPCS: 99283; A9270 ==